=== PATIENT | female | born 1960 | race Caucasian/White ===

== ENCOUNTER 2018-06-03 10:03 | Day surgery (SDC) | payer MEDICARE, MEDICAID ==
[2018-06-03] VITALS (11 sets, daily range): BP systolic 134–176; BP diastolic 72–90
[~2018-06-03] VITALS: Ht 152.4 cm; Wt 103.6 kg
[2018-06-03] MEDS ORDERED: LIDOcaine 1% (10mg/ml)w/preservative injection 20ml MDV ONE (10:16)
[2018-06-03] MEDS ORDERED: iohexol 350 MG/ML 50ML vial IV ONE (10:17)
[2018-06-03] MEDS ORDERED: iohexol 350MG/ML 100ml bottle IV ONE (10:17)
[2018-06-03] MEDS ORDERED: sod bicarbonate 150mEq in D5W 1,150 ML IV ONE (10:20)
[2018-06-03] MEDS ORDERED: diphenhydrAMINE 25mg capsule PO PRN (10:20)
[2018-06-03] MEDS ORDERED: CYCL-394 PO (10:30)
[2018-06-03] MEDS ORDERED: DULO20CA50 PO (10:31)
[2018-06-03] MEDS ORDERED: AMLO10TA4 PO (10:33)
[2018-06-03] MEDS ORDERED: ROSU40TA PO (10:34)
[2018-06-03] MEDS ORDERED: CLOP75TA15 PO (10:35)
[2018-06-03] MEDS ORDERED: LEVO200T PO (10:36)
[2018-06-03] MEDS ORDERED: HYDR-4353 PO (10:37)
[2018-06-03] MEDS ORDERED: LOSA50TA3 PO (10:39)
[2018-06-03] MEDS ORDERED: HYDR12.55 PO (10:40)
[2018-06-03 10:46] LABS: BASOPHILS % (AUTO) 0.6 % (0-1); EOSINOPHILS # (AUTO) 0.1 X10'3 (0-0.9); EOSINOPHILS % (AUTO) 1.7 % (0-6); HEMATOCRIT 43.4 % (35.0-45.0); HEMOGLOBIN 14.2 g/dl (12.0-16.0); LYMPHOCYTES # (AUTO) 1.2 X10'3 (1.1-4.8); MEAN CORPUSCULAR HEMOGLOBIN 29.6 PG (27.0-31.0); MEAN CORPUSCULAR HGB CONC 32.7 g/dL (33.0-36.5); MEAN CORPUSCULAR VOLUME 90.3 FL (78-98); MEAN PLATELET VOLUME 7.7 FL (7.4-10.4); MONOCYTES # (AUTO) 0.4 X10'3 (0-0.9); NEUTROPHILS # (AUTO) 4.5 X10'3 (1.8-7.7); NEUTROPHILS % (AUTO) 71.7 % (42-75); PLATELET COUNT 238 X10'3 (140-440); RED BLOOD COUNT 4.81 X10'6 (4.20-5.60); RED CELL DISTRIBUTION WIDTH 14.1 % (11.5-14.5); WHITE BLOOD COUNT 6.2 X10'3 (4.5-11.0)
[2018-06-03 10:50] LABS: ALBUMIN 3.5 G/DL (3.4-5.0); ANION GAP 10 (8-16); BLOOD UREA NITROGEN 13 MG/DL (7-18); BUN/CREATININE RATIO 21.3 (6.6-38.0); CALCIUM 8.5 MG/DL (8.5-10.1); CHLORIDE 102 MMOL/L (99-107); CREATININE 0.61 MG/DL (0.40-0.90); GLUCOSE 105 MG/DL (70-104); MAGNESIUM 2.1 MG/DL (1.5-2.4); POTASSIUM 4.1 MMOL/L (3.5-5.1); SODIUM 142 MMOL/L (135-145); TOTAL CARBON DIOXIDE 30.3 MMOL/L (24-32); eGFR > 90 ML/MIN
[2018-06-03] MEDS ORDERED: normal saline 1000ml 1,000 ML IV SCH (10:50)
[2018-06-03 10:53] LABS: PROTHROMBIN TIME 10.6 SECONDS (9.0-12.0)
[2018-06-03] MEDS ORDERED: fentaNYL/PF 50MCG/1 ML 2ML syringe ONE (12:03)
[2018-06-03] MEDS ORDERED: midazolam 2 mg/2 ml injection ONE ×2 (12:04→12:09)
[2018-06-03] MEDS ORDERED: pneumococcal 23-VAL P-sac vacc 25 mcg/0.5ml vial IMVAC ONE (12:40)
[2018-06-03] MEDS ORDERED: ketorolac tromethamine 15mg/ml inj. IV ONE ×2 (12:50→13:00)
[2018-06-03] MEDS ORDERED: HYDROcodone/acetaminophen 5mg/325mg tablet PO PRN (12:50)
[2018-06-03] MEDS ORDERED: HYDROcodone/acetaminophen 10/325mg tab PO PRN (12:50)
== END 2018-06-03 16:05 | disposition home or self-care (01) ==
LOC: SSTAY O 10:03
PROVIDERS: ATTEND Internal Medicine Cardiovascular Disease
DX: R94.39 Abnormal result of other cardiovascular function study (principal); I10 Essential (primary) hypertension; E78.5 Hyperlipidemia, unspecified; J44.9 Chronic obstructive pulmonary disease, unspecified; E21.3 Hyperparathyroidism, unspecified; E03.9 Hypothyroidism, unspecified; E66.9 Obesity, unspecified; M19.90 Unspecified osteoarthritis, unspecified site; Z98.890 Other specified postprocedural states; Z90.49 Acquired absence of other specified parts of digestive tract; Z98.84 Bariatric surgery status; Z79.899 Other long term (current) drug therapy; Z88.8 Allergy status to other drugs, medicaments and biological substances; Z86.79 Personal history of other diseases of the circulatory system
CPT/HCPCS: 36415; 80048; 83735; 85025; 85610; 93005; 93458; 99152; A6257; J1644; J1885; J2001; J2250; J3010; J7030; Q0163; Q9967; A4620; C1760; C1894

== ENCOUNTER 2018-09-02 17:35 | Emergency (ER) | payer MEDICARE, MEDICAID ==
[~2018-09-02] VITALS: Ht 152.4 cm; Wt 107.3 kg
[~2018-09-02 17:35] MED LIST: AMLO10TA4 PO; CLOP75TA15 PO; CYCL-394 PO; DULO20CA50 PO; HYDR-4353 PO; HYDR12.55 PO; LEVO200T PO; LOSA50TA3 PO; ROSU40TA PO
[2018-09-02 18:01] VITALS: BP 145/88
[2018-09-02] MEDS ORDERED: mupirocin 2% ointment 22GM TP STA (18:52)
[2018-09-02] MEDS ORDERED: MUPI22OI30 TOP (19:22)
== END 2018-09-02 19:30 | disposition home or self-care (01) ==
LOC: ER 17:36
DX: T24.022A Burn of unspecified degree of left knee, initial encounter (principal); I25.10 Atherosclerotic heart disease of native coronary artery without angina pectoris; Z90.49 Acquired absence of other specified parts of digestive tract; Z88.8 Allergy status to other drugs, medicaments and biological substances; X08.8XXA Exposure to other specified smoke, fire and flames, initial encounter; Y93.89 Activity, other specified; Y92.89 Other specified places as the place of occurrence of the external cause; Y99.8 Other external cause status
CPT/HCPCS: 16000; 99283; 99284